=== PATIENT | female | born 1945 | race Hispanic/Latino ===

== ENCOUNTER 2023-07-22 13:59 | Emergency (ER) | payer MEDICARE ==
[~2023-07-22] VITALS: Ht 162.6 cm; Wt 81.6 kg
[2023-07-22 14:20] VITALS: BP 147/60; PULSE 67; RESP 18
[2023-07-22 15:31] LABS: BASOPHILS # (AUTO) 0.05 K/uL (0.00-0.20); BASOPHILS % (AUTO) 0.5 % (0.0-5.0); EOSINOPHILS % (AUTO) 0.9 % (0.0-8.0); HEMATOCRIT 29.5 % (36-48); IMMATURE GRANULOCYTE ABSOLUTE 0.06 K/uL (0-1); LYMPHOCYTES # (AUTO) 2.3 K/uL (1.0-4.8); LYMPHOCYTES % (AUTO) 20.8 % (21.0-51.0); MEAN CORPUSCULAR HEMOGLOBIN 32.4 pg (27.0-33.0); MEAN CORPUSCULAR HGB CONC 34.6 g/dL (32.0-36.0); MEAN CORPUSCULAR VOLUME 93.7 fL (79-99); MONOCYTES % (AUTO) 8.8 % (3.0-13.0); NEUTROPHILS # (AUTO) 7.4 K/uL (1.8-7.7); NEUTROPHILS % (AUTO) 68.4 % (40.0-77.0); PLATELET COUNT (AUTO) 295 K/uL (130-400); RED BLOOD CELL COUNT(AUTO) 3.15 MIL/uL (4.00-5.50); RED CELL DISTRIBUTION WIDTH 13.4 % (11.0-15.5); WHITE BLOOD COUNT (AUTO) 10.8 K/uL (4.8-10.8)
[2023-07-22 15:47] LABS: ALBUMIN 3.5 g/dL (3.5-5.0)
[2023-07-22 15:55] LABS: BILIRUBIN,TOTAL 0.4 mg/dL (0.2-1.0); TOTAL PROTEIN, SERUM 7.9 g/dL (6.0-8.3)
[2023-07-22 15:57] LABS: CREATININE 10.2 mg/dL (0.5-1.5)
[2023-07-22] MEDS ORDERED: DOCU-116 PO (22:18)
== END 2023-07-22 23:21 | disposition home or self-care (01) ==
LOC: EDH 13:59
DX: K59.00 Constipation, unspecified (principal); E11.9 Type 2 diabetes mellitus without complications; E78.00 Pure hypercholesterolemia, unspecified; I10 Essential (primary) hypertension; Z85.3 Personal history of malignant neoplasm of breast; Z99.2 Dependence on renal dialysis
CPT/HCPCS: 36415; 74018; 80053; 82948; 84484; 85025; 93005

== ENCOUNTER 2023-12-14 17:31 | Emergency (ER) | payer MEDICARE ==
[~2023-12-14] VITALS: Ht 162.6 cm; Wt 79.8 kg
[~2023-12-14 17:31] MED LIST: DOCU-116 PO
[2023-12-14] MEDS: HYDRALAZINE 20MG/ML VIAL IV STA (21:30)
[2023-12-14 21:38] LABS: BASOPHILS # (AUTO) 0.05 K/uL (0.00-0.20); BASOPHILS % (AUTO) 0.5 % (0.0-5.0); EOSINOPHILS # (AUTO) 0.22 K/uL (0.00-0.70); EOSINOPHILS % (AUTO) 2.2 % (0.0-8.0); HEMATOCRIT 32.3 % (36-48); IMMATURE GRANULOCYTE ABSOLUTE 0.05 K/uL (0-1); LYMPHOCYTES # (AUTO) 3.3 K/uL (1.0-4.8); LYMPHOCYTES % (AUTO) 33.8 % (21.0-51.0); MEAN CORPUSCULAR HEMOGLOBIN 33.4 pg (27.0-33.0); MEAN CORPUSCULAR HGB CONC 34.4 g/dL (32.0-36.0); MEAN CORPUSCULAR VOLUME 97.3 fL (79-99); MONOCYTES # (AUTO) 0.8 K/uL (0.1-1.0); MONOCYTES % (AUTO) 7.8 % (3.0-13.0); NEUTROPHILS # (AUTO) 5.4 K/uL (1.8-7.7); NEUTROPHILS % (AUTO) 55.2 % (40.0-77.0); PLATELET COUNT (AUTO) 273 K/uL (130-400); RED BLOOD CELL COUNT(AUTO) 3.32 MIL/uL (4.00-5.50); RED CELL DISTRIBUTION WIDTH 13.2 % (11.0-15.5); WHITE BLOOD COUNT (AUTO) 9.9 K/uL (4.8-10.8)
[2023-12-14 21:56] LABS: ALBUMIN 2.9 g/dL (3.5-5.0); BILIRUBIN,TOTAL 0.3 mg/dL (0.2-1.0); POTASSIUM 4.7 mmol/L (3.5-5.1)
[2023-12-14 22:04] LABS: CREATININE 8.7 mg/dL (0.5-1.5)
[2023-12-14] MEDS ORDERED: LIDOP TD (22:09)
[2023-12-14] MEDS ORDERED: GABA300C PO (22:09)
[2023-12-14] MEDS ORDERED: IBUP-1493 PO (22:09)
[2023-12-14] MEDS: LABETALOL 20MG SYG IV ONE (22:21)
[2023-12-14] MEDS: LABETALOL 20MG VIAL IV ONE (22:22)
[2023-12-14] MEDS: LABETALOL 20MG VIAL IV STA (22:23)
[2023-12-14] MEDS: ONDANSETRON 4MG INJ IVP ONE (23:11)
[2023-12-14] MEDS: MORPHINE 2 MG SYG IVP ONE (23:11)
[2023-12-15] MEDS: HYDRALAZINE 20MG/ML VIAL IV ONE (00:10)
[2023-12-15 00:54] VITALS: PULSE 74; RESP 18; O2SAT 99
[2023-12-15 01:20] VITALS: PULSE 68
[2023-12-15 01:25] VITALS: BP 148/69
[2023-12-15] MEDS ORDERED: FENTANYL 1000MCG+NS 100ML 100 ML IV ONE (08:05)
== END 2023-12-15 01:30 | disposition home or self-care (01) ==
LOC: EDH 17:31
DX: I10 Essential (primary) hypertension (principal); M43.16 Spondylolisthesis, lumbar region; M54.17 Radiculopathy, lumbosacral region; I12.9 Hypertensive chronic kidney disease with stage 1 through stage 4 chronic kidney disease, or unspecified chronic kidney disease; E11.22 Type 2 diabetes mellitus with diabetic chronic kidney disease; N18.9 Chronic kidney disease, unspecified; E78.00 Pure hypercholesterolemia, unspecified; Z79.899 Other long term (current) drug therapy; Z98.890 Other specified postprocedural states
CPT/HCPCS: 99285; 96374; 96375; 80053; 85025; 36415; 72110; 72190; 96376; J2270; J0360 ×2; J2405; J3010